=== PATIENT | male | born 1975 | race Native Hawaiian/Other Pacific Islander ===

== ENCOUNTER 2017-08-12 09:05 | Day surgery (SDC) | payer OTHER ==
[2016-01-30 08:57] VITALS: BMI 25.1
[2017-08-12] MEDS ORDERED: Lactated Ringer's 1,000 ML IV ONE (10:52)
[2017-08-12] MEDS ORDERED: Lidocaine 2% MPF (5 ml) Inj ONE (12:15)
[2017-08-12] MEDS ORDERED: Propofol 10 mg/ml Inj (20 ML) ONE (12:15)
[2017-08-12 12:50] VITALS: BP 101/54; PULSE 51; RESP 18; TEMP 97; O2SAT 100
== END 2017-08-12 13:12 | disposition home or self-care (01) ==
LOC: H.ENDO 09:05
PROVIDERS: ATTEND Internal Medicine Gastroenterology
DX: K30 Functional dyspepsia (principal); K21.9 Gastro-esophageal reflux disease without esophagitis; K31.9 Disease of stomach and duodenum, unspecified; K29.50 Unspecified chronic gastritis without bleeding
CPT/HCPCS: 43239; 88305; J2704; J7120